=== PATIENT | female | born 1990 | race Hispanic/Latino ===

== ENCOUNTER 2018-04-14 05:43 | Emergency (ER) | payer OTHER ==
[2018-04-14] MEDS ORDERED: Sodium Chloride 0.9% 1,000 ML IV STA ×2 (06:34→08:05)
--- NOTE | 2018-04-14 06:45 | ED PDOC ---
HPI: Abdomen Time Seen by Provider: 04/14/18 06:23 Chief Complaint (Nursing): Abdominal Pain Chief Complaint (Provider): Abdominal Pain History Per: Patient History/Exam Limitations: no limitations Onset/Duration Of Symptoms: Hrs Current Symptoms Are (Timing): Still Present Context: Food Location Of Pain/Discomfort: RUQ, Epigastric Additional Complaint(s): 27 y/o female with a PMHx of hypothyroidism presents to the ED for evaluation of abdominal pain, onset 11 hours ago. Patient reports of eating a caesar salad at around 7 PM followed by severe epigastric pain at 10 PM. Patient states abdominal pain is associated with 6 episodes of non-bloody, non-bilious vomiting and 7 episodes of watery diarrhea. Patient reports pain radiates to the RUQ. Otherwise, patient denies lower abdominal pain, urinary symptoms and fever. PMD: no provider Past Medical History Reviewed: Historical Data, Nursing Documentation, Vital Signs Vital Signs: Last Vital Signs Temp 98.1 F 04/14/18 06:07 Pulse 100 H 04/14/18 06:07 Resp 18 04/14/18 06:07 BP 113/73 04/14/18 06:07 Pulse Ox 98 04/14/18 06:07 - Medical History PMH: Hypothyroidism - Surgical History Surgical History: No Surg Hx - Family History Family History: States: Unknown Family Hx - Home Medications Home Medications: Ambulatory Orders Medication Instructions Recorded Dicyclomine [Dicyclomine HCl] 10 mg PO TID PRN #12 cap 04/14/18 Loperamide [Loperamide HCl] 2 mg PO QID PRN #14 cap 04/14/18 Ondansetron ODT [Zofran ODT] 4 mg PO Q6 PRN #14 odt 04/14/18 RX: Ibuprofen [Motrin Tab] 600 mg PO Q6 PRN #15 tab 04/14/18 RX: traMADol [Ultram] 50 mg PO TID PRN #12 tab 04/14/18 - Allergies Allergies/Adverse Reactions: Allergies Allergy/AdvReac Type Severity Reaction Status Date / Time almond Allergy RASH Verified 04/14/18 06:06 amoxicillin Allergy RASH Verified 04/14/18 06:06 peanut Allergy RASH Verified 04/14/18 06:06 Penicillins Allergy RASH Verified 04/14/18 06:06 Review of Systems ROS Statement: Except As Marked, All Systems Reviewed And Found Negative Constitutional: Negative for: Fever Gastrointestinal: Positive for: Vomiting, Abdominal Pain, Diarrhea Genitourinary Female: Negative for: Dysuria, Frequency, Hematuria Physical Exam - Reviewed Nursing Documentation Reviewed: Yes Vital Signs Reviewed: Yes - Physical Exam Appears: Positive for: Well Head Exam: Positive for: ATRAUMATIC Skin: Positive for: Normal Color, Warm, Dry Eye Exam: Positive for: Normal appearance, EOMI, PERRL Neck: Positive for: Normal, Painless ROM, Supple Cardiovascular/Chest: Positive for: Regular Rate, Rhythm. Negative for: Murmur Respiratory: Positive for: Normal Breath Sounds. Negative for: Respiratory Distress Gastrointestinal/Abdominal: Positive for: Tenderness (epigastric and RUQ tenderness) Extremity: Positive for: Normal ROM. Negative for: Deformity Neurologic/Psych: Positive for: Alert, Oriented. Negative for: Motor/Sensory Deficits - Laboratory Results Result Diagrams: 04/14/18 06:50 04/14/18 06:50 - ECG O2 Sat by Pulse Oximetry: 98 (RA) Pulse Ox Interpretation: Normal Medical Decision Making Medical Decision Making: Time: 0634 A/P: 27 y/o female with a PMHx of hypothyroidism presenting with nausea, vomiting, diarrhea and abdominal pain. -- Patient appears well. -- Vital signs stable -- Concerned for gastroenteritis. Less likely pancreatitis or biliary/hepatic ideology -- BMP -- Lipase -- Liver Profile -- ED Urine -- ED Urine Dipstick -- CBC with differentials -- Sodium chloride IV 1000 mls/hr -- Pepcid 20 mg IVP -- Zofran Inj 4 mg IVP -- Urinalysis Time: 0700 -- Patient endorsed to Dr. Jim, pending labs, re-evaluation and final ER disposition. Scribe Attestation: Documented by Maria Luisa Schneider, acting as a scribe for Trevor Bryan MD. Provider Scribe Attestation: All medical record entries made by the Scribe were at my direction and personally dictated by me. I have reviewed the chart and agree that the record accurately reflects my personal performance of the history, physical exam, medical decision making, and the department course for this patient. I have also personally directed, reviewed, and agree with the discharge instructions and disposition. Disposition - Clinical Impression Clinical Impression: Abdominal pain, Vomiting, Diarrhea - Disposition Referrals: Edilma Medellin MD [Staff Provider] - Disposition: Transfer of Care Disposition Time: 07:00 Condition: STABLE Additional Instructions: Return to ER for any worse or new symptoms. Take medications as directed. Avoid alcohol in excess for next several days.. Followup [facility] for small adnexal cyst seen on CT. Prescriptions: Dicyclomine [Dicyclomine HCl] 10 mg PO TID PRN #12 cap PRN Reason: Gi Distress RX: Ibuprofen [Motrin Tab] 600 mg PO Q6 PRN #15 tab PRN Reason: Pain, Moderate (4-7) Loperamide [Loperamide HCl] 2 mg PO QID PRN #14 cap PRN Reason: Diarrhea Ondansetron ODT [Zofran ODT] 4 mg PO Q6 PRN #14 odt PRN Reason: Nausea/Vomiting RX: traMADol [Ultram] 50 mg PO TID PRN #12 tab PRN Reason: Pain, Moderate (4-7) Instructions: Diarrhea in Adolescents and Adults, Acute Abdomen (Belly Pain), Adult (DC), Nausea and Vomiting, Adult Forms: [employer] (Malay) Patient Signed Over To: Javon Jim III Handoff Comments: pending workup and re-eval
--- NOTE | 2018-04-14 07:00 | ED PDOC ---
- Laboratory Results Result Diagrams: 04/14/18 06:50 04/14/18 06:50 - ECG O2 Sat by Pulse Oximetry: 98 (RA) Medical Decision Making Medical Decision Making: received 7am pending labs and re-eval 0811 Upon reevaluation, patient is still complaining of pain to right upper and mid abdomen with nausea. Will obtain imaging and initiate Toradol, additional Zofran and Bentyl. 0926 Abdomen/Pelvis CT FINDINGS: LOWER THORAX: Unremarkable. LIVER: Unremarkable. No gross lesion or ductal dilatation. GALLBLADDER AND BILE DUCTS: Unremarkable. PANCREAS: Unremarkable. No gross lesion or ductal dilatation. SPLEEN: Unremarkable. ADRENALS: Unremarkable. No mass. KIDNEYS AND URETERS: Unremarkable. No hydronephrosis. No solid mass. VASCULATURE: Unremarkable. No aortic aneurysm. No aortic atherosclerotic calcification or mural plaque present. BOWEL: Unremarkable. No obstruction. No gross mural thickening. APPENDIX: Normal appendix. PERITONEUM: Unremarkable. No free fluid. No free air. LYMPH NODES: Unremarkable. No enlarged lymph nodes. BLADDER: Unremarkable. REPRODUCTIVE: Left adnexal 3.5 x 3.0 cm cyst. BONES: No acute fracture. OTHER FINDINGS: None. IMPRESSION: Normal appendix. Left adnexal 3.5 cm cyst. Pelvic ultrasound can be obtained for further evaluation as clinically warranted. 0947 Patient states she wants to leave for her mother's wedding at 1 pm today. Recommended minimized alcohol intake and follow up with PMD. Scribe Attestation: Documented by Yuli Doshi, acting as a scribe for Javon Jim MD. Provider Scribe Attestation: All medical record entries made by the Scribe were at my direction and personally dictated by me. I have reviewed the chart and agree that the record accurately reflects my personal performance of the history, physical exam, medical decision making, and the department course for this patient. I have also personally directed, reviewed, and agree with the discharge instructions and disposition. Disposition - Clinical Impression Clinical Impression: Abdominal pain, Vomiting, Diarrhea - Disposition Referrals: Edilma Medellin MD [Staff Provider] - Disposition: Routine/Home Disposition Time: 09:47 Condition: STABLE Additional Instructions: Return to ER for any worse or new symptoms. Take medications as directed. Avoid alcohol in excess for next several days.. Followup [facility] for small adnexal cyst seen on CT. Prescriptions: Dicyclomine [Dicyclomine HCl] 10 mg PO TID PRN #12 cap PRN Reason: Gi Distress Ibuprofen [Motrin Tab] 600 mg PO Q6 PRN #15 tab PRN Reason: Pain, Moderate (4-7) Loperamide [Loperamide HCl] 2 mg PO QID PRN #14 cap PRN Reason: Diarrhea Ondansetron ODT [Zofran ODT] 4 mg PO Q6 PRN #14 odt PRN Reason: Nausea/Vomiting traMADol [Ultram] 50 mg PO TID PRN #12 tab PRN Reason: Pain, Moderate (4-7) Instructions: Diarrhea in Adolescents and Adults, Acute Abdomen (Belly Pain), Adult (DC), Nausea and Vomiting, Adult Forms: [employer] (Cuban)
[2018-04-14 07:15] LABS: BASO % 0.1 % (0.0-2.0); EOS # 0.1 K/uL (0.0-0.7); EOS % 1.1 % (0.0-4.0); HEMOGLOBIN 13.2 g/dL (12.0-16.0); LYMPH # 0.4 K/uL (1.0-4.3); LYMPH % 5.4 % (20.0-40.0); MEAN CELL VOLUME 92.8 fl (81.0-99.0); MEAN CORPUSCULAR HEMOGLOBIN 31.2 pg (27.0-31.0); MEAN CORPUSCULAR HGB CONC 33.7 g/dL (33.0-37.0); MEAN PLATELET VOLUME 9.1 fl (7.2-11.7); MONO # 0.6 K/uL (0.0-0.8); MONO % 7.4 % (0.0-10.0); NEUT # 6.9 K/uL (1.8-7.0); PLATELET COUNT 185 K/uL (130-400); RBC 4.23 Mil/uL (3.80-5.20); RED CELL DISTRIBUTION WIDTH 12.5 % (11.5-14.5); WHITE BLOOD COUNT 8.1 K/uL (4.8-10.8)
[2018-04-14 07:31] LABS: SQUAMOUS EPITHIAL 10 /hpf (0-5); URINE BACTERIA RARE (<OCC); URINE BILIRUBIN NEGATIVE (NEGATIVE); URINE BLOOD NEGATIVE (NEGATIVE); URINE CLARITY CLOUDY (Clear); URINE COLOR YELLOW (YELLOW); URINE GLUCOSE (UA) NEG (NEGATIVE); URINE LEUKOCYTE ESTERASE NEG Leu/uL (Negative); URINE PROTEIN 30 mg/dL (NEGATIVE); URINE UROBILINOGEN 0.2-1.0 mg/dL (0.2-1.0)
[2018-04-14 07:44] LABS: ALB/GLOB RATIO 1.4 (1.0-2.1); ALBUMIN 4.3 g/dL (3.5-5.0); ALT/SGPT 31 U/L (9-52); AST/SGOT 25 U/L (14-36); BLOOD UREA NITROGEN 18 mg/dl (7-17); GFR NON-AFRICAN AMERICAN > 60; LIPASE 67 U/L (23-300)
[2018-04-14] MEDS ORDERED: Iohexol 240 (50 ml) PO ONE (08:05)
[2018-04-14] MEDS ORDERED: Iohexol 240 (50 ml) ONE (08:10)
[2018-04-14] MEDS ORDERED: Sodium Chloride 0.9% 50 ML IV ONE (08:53)
[2018-04-14] MEDS ORDERED: Iohexol 300 100 ML IJ ONE (08:53)
--- NOTE | 2018-04-14 09:29 | CT ---
Date of service: 04/14/2018 PROCEDURE: CT Abdomen and Pelvis with contrast HISTORY: RUQ abd pain COMPARISON: None. TECHNIQUE: Contrast dose: 98 mL Omnipaque 300 Radiation dose: Total exam DLP = 335.65 mGy-cm. This CT exam was performed using one or more of the following dose reduction techniques: Automated exposure control, adjustment of the mA and/or kV according to patient size, and/or use of iterative reconstruction technique. FINDINGS: LOWER THORAX: Unremarkable. LIVER: Unremarkable. No gross lesion or ductal dilatation. GALLBLADDER AND BILE DUCTS: Unremarkable. PANCREAS: Unremarkable. No gross lesion or ductal dilatation. SPLEEN: Unremarkable. ADRENALS: Unremarkable. No mass. KIDNEYS AND URETERS: Unremarkable. No hydronephrosis. No solid mass. VASCULATURE: Unremarkable. No aortic aneurysm. No aortic atherosclerotic calcification or mural plaque present. BOWEL: Unremarkable. No obstruction. No gross mural thickening. APPENDIX: Normal appendix. PERITONEUM: Unremarkable. No free fluid. No free air. LYMPH NODES: Unremarkable. No enlarged lymph nodes. BLADDER: Unremarkable. REPRODUCTIVE: Left adnexal 3.5 x 3.0 cm cyst. BONES: No acute fracture. OTHER FINDINGS: None. IMPRESSION: Normal appendix. Left adnexal 3.5 cm cyst. Pelvic ultrasound can be obtained for further evaluation as clinically warranted.
[2018-04-14 09:57] VITALS: BP 122/78; PULSE 76; RESP 17; TEMP 98.3
[2018-04-14 13:00] LABS: LYMPHOCYTE 3 % (20-50); MONOCYTE 4 % (0-10); NEUTROPHIL 93 % (42-75); PLATELET ESTIMATE NORMAL (NORMAL); TOTAL CELLS COUNTED 100
[2018-04-16 19:43] VITALS: O2SAT 98
== END 2018-04-14 09:50 | disposition home or self-care (01) ==
LOC: H.ER 05:43
DX: R10.13 Epigastric pain (principal); R11.10 Vomiting, unspecified; R19.7 Diarrhea, unspecified
CPT/HCPCS: 74177; 80048; 80076; 81003; 83690; 85025; 96372; 96374; 96375; 96376; 99284; J0500; J1885; J2405; J7030; Q9966; Q9967